=== PATIENT | female | born 1990 ===

== ENCOUNTER 2024-05-23 15:57 | Outpatient (CLI) | payer MEDICAID, SELFPAY ==
--- NOTE | 2024-05-23 14:37 | DI.RAD_ITS ---
Exam(s) XR ANKLE RT 2V EXAM: XR ANKLE RT 2V CLINICAL HISTORY: RIGHT ANKLE PAIN. TECHNIQUE: 2D digital imaging was performed. COMPARISON: No exams were available for comparison FINDINGS: Two views-AP and lateral There is soft tissue swelling in the calf and both sides the ankle, more so laterally and extending d own into the foot. There is no evidence of fracture or widening the ankle mortise. Talar dome appears unremarkable. Dimitris ne density normal. No osseous lesions nor erosions nor evidence of osseous tarsal coalition. No degenerative changes. No radiographic evidence of osteomyelitis. No radiopaque foreign bodies. IMPRESSION: Soft tissue swelling. No obvious osseous findings. DATA REPOSITORY: RADIATION DOSE DELIVERED:
== END 2024-05-23 15:58 | disposition home or self-care (01) ==
LOC: DIORS 15:57
PROVIDERS: PCP Family Medicine; Visit Provider Student in an Organized Health Care Education/Training Program
DX: M25.571 Pain in right ankle and joints of right foot (principal)
CPT/HCPCS: 73600

== ENCOUNTER 2024-11-12 15:18 | Outpatient (REF) | payer MEDICAID, SELFPAY ==
--- NOTE | 2024-11-12 15:10 | PAPFT_PTH ---
PATIENT: JOAO BIRD LOC: [facility] U#:[id number] AGE/SX: 34/F ROOM: RE11/12/[address]: Nika Pathak DO : 1990 BED: DIS: 11/12/2024 SPEC #: [id number] RECD: 11/12/24 18:11 STATUS: GABRIELLE REQ #: [id number] LOBO: 11/12/24 15:[address]: Nika Pathak DEPT: [facility] Cytology RECD BY: Mary Jo Worthington ENTERED: 11/12/24 18:11 SP TYPE: PAPFT OTHR : DESTINI ELLIOTT Tissues: 1 - CX/ENDOCX FOR PAP SMEARS Procedures: PAP THIN PREP/[facility] Screening HPV DNA PROBE Comments: [id number] (HPV 16 & 18/45)
== END 2024-11-12 15:19 | disposition home or self-care (01) ==
LOC: LBN 15:18
PROVIDERS: PCP Family Medicine; Visit Provider Obstetrics & Gynecology
DX: Z12.4 Encounter for screening for malignant neoplasm of cervix (principal)
CPT/HCPCS: 88142; 87624